=== PATIENT | female | born 1995 | race Caucasian/White ===

== ENCOUNTER → 2020-09-03 | Outpatient (CLI) | payer OTHER ==
[~2020-09-03] MED LIST: ALBU90OI61 INH; BENZ100A PO; ESCI5 PO; IBUP400 PO; NAPR500 PO; PROP10 PO; Prednisone20 MG PO; Tylenol325 MG PO
[2020-09-05 13:12] LABS: CHLAMYDIA TRACHOMATIS, NAA Negative (Negative)
== END ==
LOC: LAB 15:30 → LAB SHORT 15:30
PROVIDERS: Obstetrics & Gynecology
DX: Z12.4 Encounter for screening for malignant neoplasm of cervix (principal); Z11.3 Encounter for screening for infections with a predominantly sexual mode of transmission
CPT/HCPCS: 87491; 87591; G0123

== ENCOUNTER → 2021-02-21 | Outpatient (CLI) | payer OTHER | LOC: LAB 19:02 → LAB SHORT 19:02 | DX: O09.93 Supervision of high risk pregnancy, unspecified, third trimester (principal); Z88.5 Allergy status to narcotic agent | CPT/HCPCS: 87081; 87150 ==

== ENCOUNTER 2021-03-22 03:25 | Inpatient (IN) | payer OTHER ==
[~2021-03-22] VITALS: Ht 157.5 cm; Wt 105.9 kg
[2021-03-22] MEDS ORDERED: PRENATAL TABLE1 EAC2 PO (03:54)
[2021-03-22 04:51] LABS: BASOPHILS ABSOLUTE AUTO 0.02 K/mm3 (0.00-0.23); BASOPHILS PERCENT AUTO 0 % (0-2); EOSINOPHILS ABSOLUTE AUTO 0.12 K/mm3 (0.00-0.68); EOSINOPHILS PERCENT AUTO 2 % (0-6); Hematocrit 35.8 % (33.0-51.0); Hemoglobin 11.9 g/dL (11.5-16.0); IMMATURE GRAN ABSOLUTE AUTO 0.03 K/mm3 (0.00-0.10); IMMATURE GRAN PERCENT AUTO 0 % (0-1); LYMPHOCYTES ABSOLUTE AUTO 1.73 K/mm3 (0.84-5.20); LYMPHOCYTES PERCENT AUTO 24 % (21-46); MONOCYTES ABSOLUTE AUTO 0.79 K/mm3 (0.16-1.47); MONOCYTES PERCENT AUTO 11 % (4-13); Mean Corpuscular HGB 26.3 pg (26.0-34.0); Mean Corpuscular HGB Conc 33.2 g/dL (31.5-36.5); Mean Corpuscular Volume 79 fL (80-100); Mean Platelet Volume 11.9 fL (9.1-12.4); NEUTROPHILS ABSOLUTE AUTO 4.46 K/mm3 (1.96-9.15); NEUTROPHILS PERCENT AUTO 62 % (41-73); Platelet Count 199 K/mm3 (150-400); RDW Coefficient Variation 12.6 % (11.7-14.2); RDW Standard Deviation 35.7 fL (35.1-46.3); Red Blood Cell Count 4.53 M/mm3 (3.80-5.20); White Blood Cell Count 7.15 K/mm3 (4.00-11.30)
[2021-03-22 05:36] LABS: SARS-Cov-2 (COVID-19) PCR, MMC POSITIVE (NEGATIVE)
--- NOTE | 2021-03-23 00:07 | NUR ---
pt admits to pain level of 4. Declines offer of pain med @ this time Actively nursing daughter
[2021-03-23 05:48] LABS: Hematocrit 37.4 % (33.0-51.0); Hemoglobin 12.3 g/dL (11.5-16.0); Mean Corpuscular HGB 26.6 pg (26.0-34.0); Mean Corpuscular HGB Conc 32.9 g/dL (31.5-36.5); Mean Corpuscular Volume 81 fL (80-100); Mean Platelet Volume 11.8 fL (9.1-12.4); Platelet Count 170 K/mm3 (150-400); RDW Coefficient Variation 12.8 % (11.7-14.2); RDW Standard Deviation 37.4 fL (35.1-46.3); Red Blood Cell Count 4.62 M/mm3 (3.80-5.20); White Blood Cell Count 12.66 K/mm3 (4.00-11.30)
[2021-03-23] MEDS ORDERED: IBUP800 PO (13:01)
== END 2021-03-23 16:08 | disposition home or self-care (01) | DRG 805 ==
LOC: OBS 03:25 → BC 03:26 → OBS 03:38 → BC 03:39
PROVIDERS: ADMIT Obstetrics & Gynecology
PROC: 10E0XZZ Delivery of Products of Conception, External Approach (ICD-10-PCS; principal; 2021-03-22)
DX: O98.52 Other viral diseases complicating childbirth (principal); U07.1 COVID-19; Z37.0 Single live birth; O99.214 Obesity complicating childbirth; Z20.822 Contact with and (suspected) exposure to COVID-19; O42.02 Full-term premature rupture of membranes, onset of labor within 24 hours of rupture; O69.81X0 Labor and delivery complicated by cord around neck, without compression, not applicable or unspecified; Z3A.40 40 weeks gestation of pregnancy; Z87.891 Personal history of nicotine dependence; Z88.5 Allergy status to narcotic agent; Z67.30 Type AB blood, Rh positive
CPT/HCPCS: 36415; 85025; 85027; 86850; 86900; 86901; A9270; J2210; J2590; J3010; J7120; U0004

== ENCOUNTER 2021-03-25 15:11 | Emergency (ER) | payer OTHER ==
[~2021-03-25] VITALS: Ht 157.5 cm; Wt 105.2 kg
[~2021-03-25 15:11] MED LIST changes: +IBUP800 PO; +PRENATAL TABLE1 EAC2 PO
== END 2021-03-25 16:35 | disposition home or self-care (01) ==
LOC: ER 15:11
DX: O9A.23 Injury, poisoning and certain other consequences of external causes complicating the puerperium (principal); S01.01XA Laceration without foreign body of scalp, initial encounter; J45.909 Unspecified asthma, uncomplicated; S30.811A Abrasion of abdominal wall, initial encounter; Z23 Encounter for immunization; Z88.5 Allergy status to narcotic agent; Z79.899 Other long term (current) drug therapy; Z87.891 Personal history of nicotine dependence; V48.5XXA Car driver injured in noncollision transport accident in traffic accident, initial encounter; Y92.411 Interstate highway as the place of occurrence of the external cause
CPT/HCPCS: 12002; 70450; 71045; 72125; 72170; 90471; 90714; 99284-25

== ENCOUNTER 2021-04-02 13:36 | Emergency (ER) | payer OTHER ==
[~2021-04-02] VITALS: Ht 157.5 cm; Wt 99.8 kg
== END 2021-04-02 15:24 | disposition home or self-care (01) ==
LOC: ER 13:36
DX: S01.01XD Laceration without foreign body of scalp, subsequent encounter (principal); Z88.5 Allergy status to narcotic agent; Z87.891 Personal history of nicotine dependence; V89.2XXD Person injured in unspecified motor-vehicle accident, traffic, subsequent encounter

== ENCOUNTER 2021-04-15 12:08 | Emergency (ER) | payer OTHER ==
[~2021-04-15] VITALS: Ht 157.5 cm; Wt 96.2 kg
== END 2021-04-15 14:52 | disposition home or self-care (01) ==
LOC: ER 12:08
DX: M25.552 Pain in left hip (principal); M25.551 Pain in right hip; G89.11 Acute pain due to trauma; Z88.5 Allergy status to narcotic agent
CPT/HCPCS: 72192; 99283-25

== ENCOUNTER 2021-09-20 12:02 | Emergency (ER) | payer OTHER ==
[~2021-09-20] VITALS: Ht 157.5 cm; Wt 90.7 kg
[2021-09-20] MEDS ORDERED: METPRE4DP PO (15:58)
[2021-09-20] MEDS ORDERED: GABA300 PO (15:58)
[2021-09-20] MEDS ORDERED: Robaxin750 MG PO (15:58)
[2021-09-20] MEDS ORDERED: NAPR500 PO (15:58)
== END 2021-09-20 16:20 | disposition home or self-care (01) ==
LOC: ER 12:02
DX: S06.0X9A Concussion with loss of consciousness of unspecified duration, initial encounter (principal); M54.12 Radiculopathy, cervical region; M75.42 Impingement syndrome of left shoulder; Z87.891 Personal history of nicotine dependence; V89.2XXA Person injured in unspecified motor-vehicle accident, traffic, initial encounter
CPT/HCPCS: 70450; 72125; 73030; 96372; 99283-25; A9270; J1885

== ENCOUNTER 2021-11-10 16:22 | Emergency (ER) | payer OTHER ==
[~2021-11-10] VITALS: Ht 157.5 cm; Wt 90.7 kg
[~2021-11-10 16:22] MED LIST changes: +GABA300 PO; +METPRE4DP PO; +Robaxin750 MG PO
== END 2021-11-10 17:55 | disposition home or self-care (01) ==
LOC: ER 16:22
DX: M25.512 Pain in left shoulder (principal); Z87.891 Personal history of nicotine dependence
CPT/HCPCS: 73030; 99283-25

== ENCOUNTER 2022-02-05 13:05 | Emergency (ER) | payer OTHER ==
[~2022-02-05] VITALS: Ht 157.5 cm; Wt 90.7 kg
== END 2022-02-05 13:44 | disposition home or self-care (01) ==
LOC: ER 13:05
DX: U07.1 COVID-19 (principal); J45.909 Unspecified asthma, uncomplicated; Z88.5 Allergy status to narcotic agent; Z87.891 Personal history of nicotine dependence
CPT/HCPCS: 99283; A9270

== ENCOUNTER 2022-02-25 18:21 | Emergency (ER) | payer OTHER ==
[~2022-02-25] VITALS: Ht 157.5 cm; Wt 95.2 kg
[2022-02-25 19:44] LABS: Influenza A, PCR NEGATIVE (NEGATIVE); Influenza B, PCR NEGATIVE (NEGATIVE); Resp Syncytial Virus, PCR NEGATIVE (NEGATIVE); SARS-Cov-2 (COVID-19) PCR, MMC NEGATIVE (NEGATIVE)
== END 2022-02-25 20:39 | disposition home or self-care (01) ==
LOC: ER 18:21
PROVIDERS: Emergency Medicine
DX: J06.9 Acute upper respiratory infection, unspecified (principal); Z20.822 Contact with and (suspected) exposure to COVID-19; Z88.5 Allergy status to narcotic agent; Z87.891 Personal history of nicotine dependence
CPT/HCPCS: 0241U